=== PATIENT | female | born 1950 | race Caucasian/White ===

== ENCOUNTER 2021-12-31 16:21 | Observation (INO) | payer MEDICARE, OTHER ==
[~2021-12-31] VITALS: Ht 157.5 cm; Wt 54.4 kg
[2021-12-31 16:34] VITALS: BP 153/74
[2021-12-31 17:41] LABS: ABSOLUTE BASOPHILS 0.1 thou/uL (0.0-0.2); ABSOLUTE EOSINOPHILS 0.1 thou/uL (0.0-0.7); ABSOLUTE LYMPHOCYTES 2.2 thou/uL (0.8-5.3); ABSOLUTE MONOCYTES 0.4 thou/uL (0.0-1.2); ABSOLUTE NEUTROPHILS 6.1 thou/uL (1.6-8.1); BASOPHILS 1.3 %; EOSINOPHILS 1.3 %; HEMATOCRIT 39.3 % (37.0-47.0); LYMPHOCYTES 24.6 %; MCH 29.2 pg (26.0-34.0); MCV 88.4 fL (80.0-100.0); MPV 8.2 fl. (7.2-11.1); NUCLEATED RBCS 0 /100WBC; PLATELET COUNT* 276 thou/uL (150-400); POLYS 67.8 %; RBC 4.45 mil/uL (4.20-5.00); RDW-CV 13.6 % (10.5-14.5)
[2021-12-31 17:53] LABS: CALCIUM 9.3 mg/dL (8.5-10.1); CREATININE 1.1 mg/dL (0.6-1.3); POTASSIUM 4.1 mmol/L (3.5-5.1)
[2021-12-31 17:57] LABS: ALBUMIN 4.2 g/dL (3.4-5.0); TOTAL BILIRUBIN 0.4 mg/dL (<0.1-1.0); TOTAL PROTEIN 7.9 g/dL (6.4-8.2)
[2022-01-01 01:27] VITALS: BP 130/68
[2022-01-01 08:00] VITALS: BP 101/50
--- NOTE | 2022-01-01 09:15 | EKG ---
[place] [address] ELECTROCARDIOGRAM REPORT Name: TIFFANY JOSHUA Room: [address]#: [id number] Admission: 12/31/21 Attend Phys: Mago Shook, Discharge: Date of : 50 Date of Service: 12/31/21 1909 Report #: [id number] THIS REPORT FOR: //name// [facility] ED Test Date: 2021-12-31 Test Time: 19:09:20 Pat Name: TIFFANY JOSHUA Department: Room: [facility] Gender: F Graduate Nurse: HALLE : 1950 Requested By: Richard Romero Order Number: [id number] MD: Saul Smyth Measurements Intervals [place] Rate: 95 P: 83 CT: 175 QRS: 36 QRSD: 83 T: 73 QT: 341 QTc: 429 Interpretive Statements Sinus rhythm with pac Consider left atrial enlargement RSR' in V1 or V2, right VCD or RVH No previous ECG available for comparison Electronically Signed On 01-01-2022 8:59:17 [employer]IDENT H[employer] DIRECT[employer] by Saul Smyth [email or web address] <ELECTRONICALLY SIGNED> By: Saul Smyth MD, [facility] 01/01/22 0859 [id number] 08 Saul Smyth MD, [facility] /EPI
[2022-01-01 16:21] VITALS: BP 99/41
[2022-01-01 20:00] VITALS: BP 102/56
[2022-01-02 08:00] VITALS: BP 100/42
[2022-01-02] MEDS ORDERED: LIDODERM1 EACH TOP (15:52)
[2022-01-02] MEDS ORDERED: TRAMADOL 50 MG50 MG PO (15:52)
[2022-01-02] MEDS ORDERED: OXYCODONE HCL 55 MG PO (15:52)
[2022-01-02 16:14] VITALS: BP 108/43
== END 2022-01-02 16:30 ==
LOC: M.ERS 16:21 → M.TBA-ER 17:07 → M.ORTHSURG 01-01 01:45
PROVIDERS: Family Medicine; ADMIT Internal Medicine; ATTEND Internal Medicine
DX: S82.852A Displaced trimalleolar fracture of left lower leg, initial encounter for closed fracture (principal); E78.5 Hyperlipidemia, unspecified; E78.00 Pure hypercholesterolemia, unspecified; Z20.822 Contact with and (suspected) exposure to COVID-19; Z79.899 Other long term (current) drug therapy; Z79.01 Long term (current) use of anticoagulants; W01.0XXA Fall on same level from slipping, tripping and stumbling without subsequent striking against object, initial encounter; Y93.89 Activity, other specified; Y92.89 Other specified places as the place of occurrence of the external cause; Y99.8 Other external cause status